=== PATIENT | male | born 1945 ===

== ENCOUNTER 2023-04-24 07:44 | Day surgery (SDC) | payer OTHER ==
[~2023-04-24] VITALS: Ht 180.3 cm; Wt 99.9 kg
[2023-04-24] MEDS ORDERED: ATOR10 PO (08:13)
[2023-04-24] MEDS ORDERED: Prinivil10 MG PO (08:14)
[2023-04-24] MEDS ORDERED: FISH OIL 1,0001 EA10 PO (08:14)
[2023-04-24] MEDS ORDERED: KETO.5OPSO RIGHTEYE (08:16)
--- NOTE | 2023-04-24 08:29 | NUR ---
04/24/23 0829 Angelita Kidd: 0814 MARIBEL: 0815
--- NOTE | 2023-04-24 09:47 | NUR ---
04/24/23 0947 Santhosh Vazquez IV REMOVED INTACT. SITE WNL. PT ADVISED TO MONITOR B/P AT HOME AND FOLLOW UP WITH PCP.
== END 2023-04-24 09:45 | disposition home or self-care (01) ==
LOC: ORSCSDS 07:44
PROVIDERS: Ophthalmology
PROC: 08RJ3JZ Replacement of Right Lens with Synthetic Substitute, Percutaneous Approach (ICD-10-PCS; principal; 2023-04-24 09:00)
DX: H25.11 Age-related nuclear cataract, right eye (principal); I10 Essential (primary) hypertension; Z68.30 Body mass index [BMI] 30.0-30.9, adult; Z79.899 Other long term (current) drug therapy
CPT/HCPCS: J2001; J2250; J3010; J3301; J7040; V2632